=== PATIENT | female | born 1995 | race Caucasian/White ===

== ENCOUNTER 2019-06-19 18:11 | Emergency (ER) | payer MEDICAID ==
[2019-06-19 18:22] VITALS: BP 110/71
--- NOTE | 2019-06-19 18:31 | ER Document Report ---
HPI - HPI Patient complains to provider of: Medication refill Time Seen by Provider: 06/19/19 18:23 Onset: Other - Chronic Onset/Duration: Constant Quality of pain: Achy Severity: Moderate Pain Level: 3 Context: 23-year-old female past medical history significant for chronic nerve pain to her left thigh secondary to a fractured left femur 6 years ago. Patient states she recently moved here a month ago ran out of medications a week ago. States she normally takes Neurontin 300 mg 3 times a day which she has been getting from an urgent care which is no longer willing to fill her medications. Patient did not realize she had insurance and has not attempted to find a primary care physician. Found out today that she actually has Medicaid and is actively seeking a primary care physician. Denies any other concerns. Denies . Associated Symptoms: None Exacerbated by: Movement, Walking Relieved by: Other - None Similar symptoms previously: Yes - MUSCULOSKELETAL Musculoskeletal: REPORTS: Extremity pain Past Medical History - General Information source: Patient - Social History Smoking Status: Current Every Day Smoker Chew tobacco use (# tins/day): No Frequency of alcohol use: Occasional Drug Abuse: Marijuana Family History: Reviewed & Not Pertinent Patient has homicidal ideation: No Past Surgical History: Reports: Hx Section, Hx Orthopedic Surgery Vertical Provider Document - CONSTITUTIONAL Agree With Documented VS: Yes Exam Limitations: No Limitations General Appearance: WD/WN, No Apparent Distress - INFECTION CONTROL TRAVEL OUTSIDE OF THE [place] IN LAST 30 DAYS: No - HEENT HEENT: Atraumatic - NECK Neck: Normal Inspection - RESPIRATORY Respiratory: Breath Sounds Normal, No Respiratory Distress, Chest Non-Tender - CARDIOVASCULAR Cardiovascular: Regular Rate, Regular Rhythm, No Murmur - REPRODUCTIVE Notes: Has an IUD - MUSCULOSKELETAL/EXTREMETIES Musculoskeletal/Extremeties: Non-Tender - NEURO Level of Consciousness: Awake, Alert, Appropriate Motor/Sensory: No Motor Deficit, No Sensory Deficit Notes: Ambulatory with a steady gait. Neurovascularly intact. - DERM Integumentary: Warm, Dry, No Rash Course - Re-evaluation Re-evalutation: 06/19/19 18:52 Patient is neurovascularly intact. Was counseled on need to follow-up with a primary physician and/or orthopedics for her chronic medication refills. She was given strict return to the emergency room guidelines. Return for any new or worsening symptoms. All questions were answered. Patient verbalized understanding and agrees with plan of care. - Vital Signs Vital signs: Temp Pulse Resp BP Pulse Ox 98.3 F 89 14 110/71 100 06/19/19 18:21 06/19/19 18:17 06/19/19 18:17 06/19/19 18:17 06/19/19 18:17 Discharge - Discharge Clinical Impression: Left leg pain, Medication refill Condition: Stable Disposition: HOME, SELF-CARE Instructions: Leg Pain Nonspecific ([facility]) Additional Instructions: Medications as prescribed. Outpatient follow-up with a primary care physician as discussed. You were provided with on-call orthopedics as well. Return for any new or worsening symptoms. Prescriptions: Gabapentin [Neurontin 300 mg Capsule] 300 mg PO TID 10 Days #30 cap Referrals: ALEX LOPEZ MD [ACTIVE PROVISIONAL STAFF] - Follow up as needed
== END 2019-06-19 19:09 | disposition home or self-care (01) ==
LOC: ER 18:11
DX: Z76.0 Encounter for issue of repeat prescription (principal); M79.2 Neuralgia and neuritis, unspecified; M79.10 Myalgia, unspecified site; F17.200 Nicotine dependence, unspecified, uncomplicated; F12.10 Cannabis abuse, uncomplicated
CPT/HCPCS: 99281